=== PATIENT | male | born 1965 | race Caucasian/White ===

== ENCOUNTER 2018-08-16 07:01 | Inpatient (IN) ==
--- NOTE | 2018-08-02 09:18 | Anesthesiology Consultation ---
Date of Service August 02, 2018 Assessment & Plan Chart Review Chart Review: Acceptable Risk for Surgery and Patient seen in Pre Admission Testing Consults Requested none Teaching & Discussion Pre-Anesthesia Teaching/Discussion Notes: Instructed NPO after midnight before surgery, except medications with 15 cc of water. Medication instructions provided according to the PAT guidelines. History Surgery Operation Date: 08/16/18 08:15 Proposed Procedures p Robotic Right Laparoscopic Assisted Partial Nephrectomy - Hung Araujo MD Height/Weight Height: 5 ft 11 in Weight: 87.8 kg Allergies Allergy/AdvReac Type Severity Reaction Status Date / Time lisinopril Allergy Swelling Verified 07/25/18 15:13 of Lip/Tongue/Throat Medications Home Medications Medication Instructions Recorded Confirmed Last Taken amlodipine 5 mg PO QAM 07/03/18 07/25/18 07/13/18 06:00 paroxetine HCl [Paxil] 20 mg PO QAM 07/03/18 07/25/18 07/13/18 06:00 sumatriptan succinate [Imitrex] See Label Instructions .ROUTE 07/04/18 07/25/18 Unknown .COMPLEX PRN Past Medical History Medical History Kidney stones (Chronic) Migraines (Chronic) Osteoarthritis of spine (Chronic) Hypertension (Chronic) Past Surgical History Surgical History History of arthroscopy of right shoulder (Chronic) H/O laminectomy (Chronic) LUMBAR (4 TOTAL SURGERIES) History of arthroscopy LEFT KNEE LEFT SHOULDER History of cystoscopy STENT INSERTION WITH STONE REMOVAL History of lithotripsy History of tooth extraction Nausea and vomiting after administration of anesthetic agent Past Anesthesia History No Hx of Anesthesia Complications and No Family Hx of Anesthesia Complications History of PONV Yes Motion Sickness Screening History of Motion Sickness: No Social History Smoking Status: Never smoker Do You Dip or Chew Tobacco: No Hx Alcohol Use: Yes Alcohol type: other alcohol intake frequency: holidays/special occasions only Alcohol Intake Frequency Comment: RARE SOCIAL DRINK Hx Substance Use: No substance use type: does not use Exercise / Class Metabolic Activity II 4-5 Yardwork/Stairs/Walk up hill ([employer]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 Able to climb FOS easily. Denies CP or SOB. ) Review of Systems Patient denies chest pain, shortness of breath, dyspnea on exertion, reflux, cough, wheezing, palpitations. +joint pain (back) Physical Exam Vital Signs BP: 146/93 P: 86 R: 18 T: 98.0 SPO2: 97% on RA ENMT Thyromental Distance: < 3.5 Finger Breadths (3) Mallampati Class: II Neck normal visual inspection and trachea midline; neck extension not limited Respiratory normal respiratory effort Auscultation: lungs clear to auscultation bilaterally Cardiovascular Rate/Rhythm: regular rate and regular rhythm Heart Sounds: no murmur Vessels: no carotid bruit Psychiatric Orientation: alert and oriented x 3 Testing Electrocardiogram Date: 07/10/18 Findings: + NSR @ (71) Poor data quality Chest X-Ray Date: 07/10/18 Findings: + NAD FINDINGS: The bones soft tissues and hemidiaphragms are normal. The cardiomediastinal silhouette is normal. The lungs are clear. The pulmonary vasculature is normal. Mild emphysematous change. IMPRESSION: Mild emphysematous change. No acute process. Echocardiogram Date: 10/06/17 EF: 55-59% Findings of mild left atrial chamber enlargement, mild concentric LVH, and grade I diastolic dysfunction are compatible with early changes of hypertensive heart disease. Stress Test Date: 10/06/17 Type: exercise Findings: + WNL Resting EF: 55-59% The stress ECHO is negative for inducible ischemia. BP response to exercise was normal. Exercise capacity is above average. The exercise test was terminated due to fatigue with the patient having reached target HR. No chest discomfort was reported. Stress EKG response showed no evidence of ischemia. No arrhythmias were noted with stress. An age undetermined septal infarction cannot be excluded based on poor R-wave progression in lead V2. Laboratory Results 08/02/18 09:41 08/02/18 09:41 Blood Type A Negative 08/02/18 09:41 Antibody Screen NEGATIVE 08/02/18 09:41 Urine Color Yellow 08/02/18 10:13 Urine Appearance Clear (Clear) 08/02/18 10:13 Urine pH 6.5 (4.5-7.5) 08/02/18 10:13 Ur Specific Runnells 1.014 (1.000-1.030) 08/02/18 10:13 Urine Protein Negative (Negative) 08/02/18 10:13 Urine Glucose (UA) Negative (Negative) 08/02/18 10:13 Urine Ketones Negative (Negative) 08/02/18 10:13 Urine Nitrite Negative (Negative) 08/02/18 10:13 Ur Leukocyte Esterase Negative (Negative) 08/02/18 10:13 08/02/18 10:13 Urine Culture - Final Urine,Clean Catch No growth - less than 1,000 colonies/mL.
--- NOTE | 2018-08-02 09:21 | PAT Medication Instructions ---
Medication Instructions Date of Service August 02, 2018 Home Medications Medication Instructions Recorded tamsulosin 0.4 mg PO QAM 30 Days #30 cap 07/05/18 amlodipine 5 mg PO QAM paroxetine HCl [Paxil] 20 mg PO QAM sumatriptan succinate [Imitrex] tamsulosin 0.4 mg PO QAM Continue as directed sumatriptan succinate [Imitrex] Take morning of surgery With a small sip of water, OTHERWISE NOTHING TO EAT OR DRINK AFTER MIDNIGHT: amlodipine 5 mg PO QAM paroxetine HCl [Paxil] 20 mg PO QAM tamsulosin 0.4 mg PO QAM Other Notes If you have any questions please call us at [phone] or [phone] or [phone] or [phone]
[2018-08-02 10:39] LABS: Appearance Urine Clear (Clear); Bilirubin Urine Negative (Negative); Color Urine Yellow; Glucose Urine UA Negative (Negative); Ketones Urine Negative (Negative); Leukocyte Esterase Urine Negative (Negative); Nitrite Urine Negative (Negative); Protein Urine Negative (Negative); Specific Gravity Urine 1.014 (1.000-1.030); Urobilinogen Urine Negative (Negative); pH Urine 6.5 (4.5-7.5)
[2018-08-02 10:44] LABS: BUN Creatinine Ratio 14.7 (10-20); Calcium 9.7 mg/dl (8.5-10.1); Creatinine Clr Calc Pharmacy 81.6 ml/min; Est GFR (African American) 85.8; Est GFR (Non-African American) 74.1; Potassium 4.3 mmol/L (3.5-5.1)
[2018-08-02 10:47] LABS: Basophils # (auto) 0.04 K/uL (0-0.2); Basophils % (auto) 0.7 %; Eosinophils # (auto) 0.17 K/uL (0-0.5); Hematocrit (blood only) 45.3 % (42-52); Hemoglobin 15.8 g/dL (14.0-18.0); Immature Granulocytes # (auto) 0.01 K/uL (0.00-0.02); Immature Granulocytes % (auto) 0.2 %; Lymphocytes # (auto) 1.63 K/uL (1.2-3.4); Lymphocytes % (auto) 28.5 %; Mean Corpuscular Hgb Conc 34.9 g/dL (32-36); Mean Corpuscular Volume 84.7 fL (80-100); Mean Platelet Volume 10.4 fL (7.4-10.4); Monocytes # (auto) 0.31 K/uL (0.11-0.59); Monocytes % (auto) 5.4 %; Neutrophils # (auto) 3.56 K/uL (1.4-6.5); Neutrophils % (auto) 62.2 %; Platelet Count 212 K/uL (130-400); RDW Coefficient of Variation 12.8 % (11.5-14.5); RDW Standard Deviation 38.9 fL (36.4-46.3); Red Blood Count 5.35 M/uL (4.7-6.1); White Blood Count 5.72 K/uL (4.8-10.8)
[~2018-08-16 07:01] MED LIST: CEFAZOLIN 2000MG 2,000 MG/15 ML SYR IV SCH; SCOPOLAMINE 1.5 MG TDSY TD SCH; SODIUM CHLORIDE 0.9% 1000ML IV SCH
[2018-08-16] MEDS ORDERED: ONDANSETRON INJ 2 MG/ML 2 ML VIAL IV PRN ×2 (07:42→12:31)
[2018-08-16] MEDS ORDERED: ePHEDrine sulfate 50 MG/ML AMP IV PRN (07:42)
[2018-08-16] MEDS ORDERED: ATROPINE SULFATE 0.1 MG/ML 5ML SYR IV PRN (07:42)
[2018-08-16] MEDS ORDERED: BUPIVACAINE 0.5 % 5 MG/1 ML MPF 30ML VIAL ONE (07:46)
[2018-08-16] MEDS ORDERED: ACETAMINOPHEN 1000 MG/100 ML IV IV ONE (07:46)
[2018-08-16] MEDS ORDERED: fentaNYL citrate 100 MCG/2 ML VIAL ONE ×2 (07:48→12:02)
[2018-08-16] MEDS ORDERED: METOCLOPRAMIDE HCL INJ 5 MG/ML 2 ML VIAL ONE (07:48)
[2018-08-16] MEDS ORDERED: LIDOCAINE HCL 2% 2 ML VIAL/AMP(20MG/ML) INFIL ONE (07:48)
[2018-08-16] MEDS ORDERED: PROPOFOL IV EMULSION 10 MG/ML 20 ML VIAL IV ONE (07:48)
[2018-08-16] MEDS ORDERED: DEXAMETHASONE SOD INJ 4 MG/ML VIAL ONE (07:48)
[2018-08-16] MEDS ORDERED: ONDANSETRON INJ 2 MG/ML 2 ML VIAL ONE ×2 (07:48→12:57)
[2018-08-16] MEDS ORDERED: MIDAZOLAM HCL 1 MG/ML 2ML VIAL ONE (07:48)
[2018-08-16] MEDS ORDERED: KETAMINE HCL INJ 50 MG/ML 10 ML VIAL ONE (07:50)
[2018-08-16] MEDS ORDERED: SCOPOLAMINE 1.5 MG TDSY ONE (08:01)
--- NOTE | 2018-08-16 08:04 | History & Physical Bridge Note ---
Date of Service August 16, 2018 History & Physical Bridge Note I have examined the patient, reviewed the History & Physical and in the interval since the performance of the History & Physical I have noted the following changes of clinical significance: no changes noted
[2018-08-16] MEDS ORDERED: ROCURONIUM BROMIDE 10 MG/ML 5 ML VIAL ONE (09:28)
[2018-08-16] MEDS ORDERED: HYDROmorphone INJ 2 MG/ML SYR/VIAL ONE (09:50)
[2018-08-16] MEDS ORDERED: raNITIdine HCl 25 MG/ML VIAL ONE (09:56)
[2018-08-16] MEDS ORDERED: DiphenhydrAMINE HCL 50 MG/ML VIAL ONE (09:56)
[2018-08-16] MEDS ORDERED: TISSEEL FIBRIN SEALANT 10ML TOP ONE (10:24)
[2018-08-16] MEDS ORDERED: MANNITOL 25% 12.5 GM/50 ML VIAL IV ONE ×2 (10:33)
[2018-08-16] MEDS ORDERED: MANNITOL 20% 100GM/500 ML BAG IV ONE (10:33)
[2018-08-16] MEDS ORDERED: SURGICEL ABSORB HEMOSTAT 2IN X 14IN TOP ONE (11:28)
[2018-08-16] MEDS ORDERED: FLOSEAL HEMOSTATIC MATRIX 10ML TOP ONE (11:28)
[2018-08-16] MEDS ORDERED: NEOSTIGMINE METHYLSULFATE 5 MG/5 ML SYR ONE (11:45)
[2018-08-16] MEDS ORDERED: GLYCOPYRROLATE 0.2 MG/ML VIAL ONE (11:45)
--- NOTE | 2018-08-16 12:09 | Post Operative Brief Note ---
Immediate Post Op Note v1 Date of Surgery August 16, 2018 Pre & Post Diagnosis Operation Date: 08/16/18 08:15 Pre-Op Diagnosis: Right renal mass Post-Op Diagnosis: Right renal mass Procedure Operation Date: 08/16/18 08:15 Actual Procedures p Right Robotic Laparoscopic-Assisted Partial Nephrectomy(Right) - Hung Araujo MD Surgeon Hung Araujo MD Sheeting Puller Dr. Isak Rocha; Mauri Mane Estimated Blood Loss 400 Findings Consistent with Post-Op Diagnosis Drains Machado Catheter (16 Fr. Machado catheter inserted by Noemi Senior RN without difficulty. Draining clear yellow urine. Anesthesia to monitor urine output. ) and Derrick-Subramanian Drain (10Fr Round)
[2018-08-16] MEDS ORDERED: MoRPHine SULFATE 2 MG/ML CARP IV PRN (12:31)
[2018-08-16] MEDS ORDERED: OXYCODONE/ACETAMINOPHEN 5mg/325mg TAB PO PRN (12:31)
[2018-08-16] MEDS ORDERED: ACETAMINOPHEN 325 MG TAB PO PRN (12:31)
[2018-08-16] MEDS ORDERED: SUMAtriptan succinate 25 MG TAB PO PRN (12:37)
--- NOTE | 2018-08-16 12:51 | Operative Report ---
Post Operative Report Date of Surgery August 16, 2018 Pre & Post Diagnosis Operation Date: 08/16/18 08:15 Pre-Op Diagnosis: Right renal mass Post-Op Diagnosis: Right renal mass Procedure Operation Date: 08/16/18 08:15 Actual Procedures p Right Robotic Laparoscopic-Assisted Partial Nephrectomy(Right) - Hung Araujo MD Description of procedure: The patient was identified in the preoperative holding area, appropriate informed consents reviewed and completed and the patient was transported to the operating suite. Upon arrival he received appropriate preoperative antibiotics in the form of Ancef. He was placed in the left side down right side up lateral decubitus position with the bed flexed. Following appropriate sterile prep and drape, a Veress needle was passed into the right upper quadrant and abdomen insufflated to 15 mmHg. I marked tentative port sites and entered the abdomen through a 12 mm incision just lateral to the rectus border approximately 4 cm superior to the umbilicus. I entered utilizing a 10 mm Visiport and 0 degree lens inspection revealed no evidence of veress trauma. The anterior abdominal wall was inspected and found to be free of significant adhesions. Sequentially placed each additional port in standard robotic nephrectomy fashion, with a 8 mm robotic port placed at the border of the rectus approximately 2 fingers below the costal margin, a second 8 mm robotic port placed approximately 4 cm inferior 4 cm lateral to my initial 12 mm camera port. We additionally passed a subxiphoid liver retractor/5 mm port. To 12 mm assistant to the dean ports were placed in the midline, one immediately infraumbilical another approximately 6 cm above the umbilicus. I undocked the robot begin mobilizing the colon by incising the line of Toldt. After medializing the colon, I also kocherized the duodenum utilizing cold scissors. This exposed the inferior vena cava as well as the right renal vein. Other hilar structures were identified including a tortuous artery passing inferior to the vein and a smaller artery passing behind the vein and towards the upper pole of the kidney. There was an accompanying small vein with this upper pole artery. There is no large artery appreciated immediately behind the vein. I additionally identify the ureter and renal pelvis with care to avoid encroachment upon them. After identifying a clearing my renal hilar anatomy, I turned my attention to the kidney itself. I mobilized the lateral aspect of Gerota's fascia before incising Gerota's fascia on the anterior surface of the kidney. I was able to free the kidney entirely inside of Gerota's fascia. This allowed mobilization of the kidney medially so I could visualize the posterior aspect of the kidney. Gradually working my way around the posterior aspect of the kidney I was ultimately able to identify a protuberant renal tumor just above the midpoint of the kidney on the extreme medial aspect of the posterior wall. This was consistent with preoperative imaging. I carefully cleared an area circumferentially around the tumor. At that time I performed an intraoperative ultrasound examination with a laparoscopic ultrasound probe. This confirmed the tumor as well as to help to identify depth of invasion. I marked the capsule for my planned site of incision. I then preplaced 3 stitches for renorraphy administered 12.5 g of mannitol. Following completion of mannitol, we clamped the inferior renal artery followed by the superior renal artery and then the vein. Of note, it appeared that the vein was still filling more briskly than I would have liked. I therefore removed the venous clamp. We placed a second arterial clamp on the inferior artery. I left the vein unclamped. We then rolled the kidney medially further kinking these vessels. I excised the tumor sharply. There was some bleeding at the base consistent with venous ooze. I began renorraphy utilizing the preplaced stitches. A single stitch was started on the most lateral and superior aspect of the incision and then passed to the inferior aspect of the incision before returning to the superior aspect of back again to the inferior aspect, 3 total passes across the defect closed the incision. Of note Weck clips were placed between each pass to allow for the sliding clip technique. I compressed the kidney utilizing these clips which international specialist obstructed any superficial vessels. There was excellent hemostasis at that point. We then removed the hilar clamps allowing full reperfusion of the kidney. There was still excellent hemostasis. I slightly tightened the previously placed stitches performed placing FloSeal over top of the defect, she does Surgicel, and then sprayed Tisseel to re-create a new capsule. Gerota's fascia was reapproximated over top of the kidney utilizing a 2-0V lock stitch. Specimen was contained within an Endo Catch bag and the robot undocked. A 10 Green[place]ic MALISSA drain was guided into the right lateral aspect of the abdomen, through 1 of the robotic ports. This was sutured in place with a 2-0 nylon. I then expanded the infraumbilical incision slightly to allow extraction of the specimen. Fascia was reapproximated with 2 [id number] 0 Vicryl sutures. The additional 12 mm ports were each closed with a [id number] 0 Vicryl suture through the fascia. All incisions were infiltrated with half percent Marcaine before closure of the skin with 4-0 Monocryl. Dermabond was placed over the incisions and the case concluded Dr. Isak Rocha assisted throughout the case with planning and clinical decision making as well as first assisting throughout the on clamp time and renal reconstruction. Mauri Mane assisted from incision to closure. There were no complications. He was extubated and sent to the PACU in stable condition Surgeon Hung Araujo MD Chemical Analyst Dr. Isak Rocha; Mauri Mane Estimated Blood Loss 400 Findings Consistent with Post-Op Diagnosis Specimens Right renal mass I attest to the content of the Intraoperative Record and any orders documented therein. Any exceptions are noted below.
[2018-08-16] MEDS: fentaNYL citrate 100 MCG/2 ML VIAL IV PRN ×5 (13:02→13:31)
[2018-08-16 13:06] LABS: Basophils # (auto) 0.01 K/uL (0-0.2); Basophils % (auto) 0.1 %; Eosinophils # (auto) 0.01 K/uL (0-0.5); Eosinophils % (auto) 0.1 %; Hematocrit (blood only) 43.4 % (42-52); Hemoglobin 14.7 g/dL (14.0-18.0); Immature Granulocytes # (auto) 0.04 K/uL (0.00-0.02); Immature Granulocytes % (auto) 0.3 %; Lymphocytes # (auto) 1.12 K/uL (1.2-3.4); Lymphocytes % (auto) 8.3 %; Mean Corpuscular Volume 86.3 fL (80-100); Mean Platelet Volume 9.7 fL (7.4-10.4); Monocytes # (auto) 0.16 K/uL (0.11-0.59); Monocytes % (auto) 1.2 %; Neutrophils # (auto) 12.19 K/uL (1.4-6.5); Platelet Count 200 K/uL (130-400); RDW Coefficient of Variation 13.3 % (11.5-14.5); RDW Standard Deviation 41.6 fL (36.4-46.3); Red Blood Count 5.03 M/uL (4.7-6.1); White Blood Count 13.53 K/uL (4.8-10.8)
[2018-08-16 13:11] LABS: Mean Corpuscular Hgb Conc 33.9 g/dL (32-36)
--- NOTE | 2018-08-16 13:11 | Anesthesiology Progress Note ---
Date of Service August 16, 2018 Anesthesia Post Procedure Vital Signs Vital Signs: Temp Pulse Pulse Resp BP Pulse Ox 08/16/18 13:05 89 14 147/85 H 93 08/16/18 12:55 96 H 14 138/92 93 08/16/18 12:45 90 13 154/92 H 97 08/16/18 12:35 88 14 140/88 97 08/16/18 12:26 98.4 F 91 H 12 163/105 H 96 08/16/18 07:21 98.1 F 92 H 18 159/107 H 94 Pain Intensity Head: Pain Intensity: 8 Back: Pain Intensity: 4 Abdomen: Pain Intensity: 4 Notes Mental Status: alert / awake / arousable and participated in evaluation Patient Amnestic to Procedure: Yes Nausea / Vomiting: adequately controlled Pain: adequately controlled Airway Patency, RR, SpO2: stable & adequate BP & HR: stable & adequate Hydration State: stable & adequate Anesthetic Complications: no major complications apparent and Pt Satisfied with anesthetic care
[2018-08-16 13:24] LABS: BUN Creatinine Ratio 8.1 (10-20); Calcium 8.6 mg/dl (8.5-10.1); Creatinine Clr Calc Pharmacy 59.7 ml/min; Est GFR (African American) 58.7; Est GFR (Non-African American) 50.7; Potassium 4.5 mmol/L (3.5-5.1)
[2018-08-16] MEDS ORDERED: OXYCODONE/ACETAMINOPHEN 5mg/325mg TAB ONE (14:35)
[2018-08-16] MEDS: MoRPHine SULFATE 4 MG/ML 1 ML CARP\\VIAL IV PRN ×3 (15:21→23:40)
[2018-08-16] MEDS: LACTATED RINGER'S 1,000 ML IV SCH (15:26)
[2018-08-16] MEDS: CHECK SCOPOLAMINE PATCH PLACEMENT SCH ×2 (15:27→23:41)
[2018-08-16] MEDS: CEFAZOLIN 1000MG 1,000 MG/7.5 ML SYR IV SCH ×2 (15:32→23:40)
[2018-08-16] MEDS ORDERED: ARTIFICIAL TEARS OP OINT 3.5 GM TUBE OP PRN (16:15)
[2018-08-16] MEDS: ERYTHROMYCIN OP OINT 5 MG/GM 3.5 GM TUBE OP SCH (20:21)
[2018-08-17] MEDS: LACTATED RINGER'S 1,000 ML IV SCH ×2 (01:41→11:09)
[2018-08-17] MEDS: MoRPHine SULFATE 4 MG/ML 1 ML CARP\\VIAL IV PRN ×2 (04:11→08:22)
[2018-08-17 08:13] VITALS: O2SAT 94
[2018-08-17] MEDS: ERYTHROMYCIN OP OINT 5 MG/GM 3.5 GM TUBE OP SCH (08:26)
[2018-08-17] MEDS ORDERED: PARoxetine HCl 20 MG TAB PO SCH (09:00)
[2018-08-17] MEDS ORDERED: AMLODIPINE BESYLATE 5 MG TAB PO SCH (09:00)
[2018-08-17 09:29] LABS: BUN Creatinine Ratio 8.9 (10-20); Calcium 8.7 mg/dl (8.5-10.1); Creatinine Clr Calc Pharmacy 81.6 ml/min; Est GFR (African American) 85.8; Est GFR (Non-African American) 74.1; Potassium 3.9 mmol/L (3.5-5.1)
--- NOTE | 2018-08-17 10:37 | Anesthesiology Progress Note ---
Date of Service August 17, 2018 Anesthesia Post Procedure Vital Signs Vital Signs: Temp Pulse Pulse Resp BP BP Pulse Ox 08/17/18 07:35 37.2 C 76 16 130/78 94 08/17/18 03:53 37.3 C 89 18 121/71 90 08/16/18 23:13 37.2 C 94 H 18 131/70 90 08/16/18 19:18 37.0 C 98 H 16 144/75 H 94 08/16/18 17:03 37.1 C 99 H 17 122/65 92 08/16/18 16:00 36.9 C 103 H 18 155/72 H 96 08/16/18 15:03 102 H 18 167/94 H 96 08/16/18 14:35 101 H 21 166/89 H 96 08/16/18 14:00 37 C 99 H 14 146/76 H 95 08/16/18 13:45 94 H 12 130/84 93 08/16/18 13:35 37.6 C H 92 H 14 131/78 92 08/16/18 13:25 90 16 136/81 92 08/16/18 13:15 99 H 13 156/80 H 91 08/16/18 13:05 89 14 147/85 H 93 08/16/18 12:55 96 H 14 138/92 93 08/16/18 12:45 90 13 154/92 H 97 08/16/18 12:35 88 14 140/88 97 08/16/18 12:26 36.9 C 91 H 12 163/105 H 96 Notes Mental Status: alert / awake / arousable and participated in evaluation Patient Amnestic to Procedure: Yes Nausea / Vomiting: adequately controlled Pain: adequately controlled Airway Patency, RR, SpO2: stable & adequate BP & HR: stable & adequate Hydration State: stable & adequate Anesthetic Complications: Pt Satisfied with anesthetic care Notes: Patients eyes were extremely dry and itching post procedure. Already an order for eye drops placed. Instructed patient and to notify anesthesia if problem persists after administering drops as prescribed
[2018-08-17] MEDS: OXYCODONE/ACETAMINOPHEN 5mg/325mg TAB PO PRN ×2 (11:10→12:16)
[2018-08-17 12:12] VITALS: BP 124/80; TEMP 98.8
--- NOTE | 2018-08-17 12:14 | Urology Progress Note ---
Date of Service August 17, 2018 Assessment & Plan (1) Renal mass: POD #1 s/p robotic partial nephrectomy (right) - voided after simon dc - tolerating a diet - doing well overall - plan to dc drain and dc home - will cover with erythromycin ointment for eyes (possible corneal abrasions?) Subjective Doing very well after his surgery yesterday - pain is well controlled - some eye discomfort (b/l) - tolerable abdominal discomfort - voiding after catheter removal - MALISSA output is low volume/serosang - urine has been clear - labs stable (cr 1.1) Physical Exam 2 Vital Signs (Past 24 Hours): Last Vital Signs Temp 37.2 C 08/17/18 07:35 Pulse 76 08/17/18 07:35 Resp 16 08/17/18 07:35 BP 130/78 08/17/18 07:35 Pulse Ox 94 08/17/18 07:35 Physical Exam: NAD AAOx3 red eyes no resp distress RRR abd soft - incisions appropriate MALISSA serosange no edema full ROM
[2018-08-17 12:28] VITALS: PULSE 89
--- NOTE | 2018-08-18 09:36 | Discharge Summary ---
Date of Service August 18, 2018 Admission HPI Per Admitting Provider Incidental discovery of renal mass - now presenting for robotic partial nephrectomy Principal Diagnosis Renal mass - suspected renal cell carcinoma Discharge Data Allergies Allergy/AdvReac Type Severity Reaction Status Date / Time lisinopril Allergy Severe Swelling Verified 08/16/18 07:18 of Lip/Tongue/Throat Procedures Performed Operation Date: 08/16/18 08:15 Actual Procedures p Right Robotic Laparoscopic-Assisted Partial Nephrectomy(Right) - Hung Araujo MD Hospital Course (1) Renal mass: Admitted for surgery - details as described previously in the operative report. In summary, he tolerated the procedure extremely well. He was ambulatory on POD#0. His labs were all appropriate. He voided adequately on POD #1. Drain was removed and he was d/c'ed home in stable condition. Total Time Total Time Spent Total Time Spent (In Minutes): 15 Discharge Plan Discharge Items Patient Disposition: Home - Self-Care Reason For Visit: Renal Mass Discharge Diagnosis: Renal mass Discharge Goals: Improve disease control, Improve function and Increase independence Activity: Per 'Additional Instructions' section Lifting: No more than 25 pounds Bathing: No limitations Sexual Activity: When tolerated Exercise/Sports: Wait until after follow-up appointment Driving/Machine Use: Resume 1 day after discharge Driving/Machine Use Comment: Do not drive while taking pain medications Non-emergency contact: Urologist Call non-emergency contact if: you have any medication questions, your pain is not controlled, your pain is worsening, you have a fever, your temperature is above 101.5, your wound has increased redness and your wound has increased drainage Follow-up/Referrals: Camelia Savage MD [Primary Care Provider] - Diet: Regular Addtl Provider Instructions: Please keep your previously scheduled follow up appointment Prescriptions: New hydrocodone-acetaminophen 5-325 mg tablet 1 tab PO Q6H PRN (Reason: pain) Qty: 25 RF: 0 erythromycin 5 mg/gram (0.5 %) ointment 1 appln OP BID 7 Days Qty: 1 RF: 0 Continue amlodipine 5 mg tablet 5 mg PO QAM RF: 0 paroxetine HCl [Paxil] 20 mg Tablet 20 mg PO QAM RF: 0 sumatriptan succinate [Imitrex] 25 mg Tablet See Label Instructions .ROUTE .COMPLEX PRN (Reason: Migraine Headache) RF: 0 Visit Report Forms: [employer] Stand-Alone Forms: [facility] Discharge Orders: Discharge Order (Routine); Ordered 08/17/18 Ordered By: Hung Araujo Admission Data Admit Date/Time: 08/16/18 12:31 Attending Provider: Hung Araujo Admit Provider: Hung Araujo Primary Care Provider: Camelia Savage Service: Surgical Services Other Interventions: Discharge Summary Assessment (RN) Last Done: 08/17/18 12:25 DC Date/Time DO NOT enter until pt leaves facility: 08/17/18 13:36
== END 2018-08-17 13:36 | disposition home or self-care (01) | DRG 658 ==
LOC: ASU 07:01 → 3W 12:31